=== PATIENT | male | born 1980 | race Caucasian/White ===

== ENCOUNTER 2018-11-24 00:15 | Emergency (ER) | payer OTHER ==
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
--- NOTE | 2018-11-24 00:57 | XRAY Report ---
Reason: injury, pain, deformity Procedure Date: 11/24/2018 Accession Number: [id number] / [id number] Procedure: XR - Finger(s) RT CPT Code: FULL RESULT: EXAM: RIGHT DIGIT RADIOGRAPHY EXAM DATE: 11/24/2018 12:49 AM. CLINICAL HISTORY: Injury, pain, deformity. COMPARISON: None. TECHNIQUE: 3 views. FINDINGS: Bones: No acute fractures seen. Joints: Posterior and medial dislocation of the middle phalanx with respect to the proximal phalanx. Soft Tissues: Unremarkable. IMPRESSION: Dislocation of the fifth PIP. [facility]
[2018-11-24 01:31] VITALS: BP 148/106
== END 2018-11-24 01:31 | disposition home or self-care (01) ==
LOC: ED 00:15
DX: S63.286A Dislocation of proximal interphalangeal joint of right little finger, initial encounter (principal); Y04.2XXA Assault by strike against or bumped into by another person, initial encounter
CPT/HCPCS: 26605; 73140; 99282; 99283